=== PATIENT | female | born 1995 | race Caucasian/White ===

== ENCOUNTER 2018-05-09 11:31 | Emergency (ER) | payer OTHER ==
[2018-05-09 11:37] VITALS: BP 114/85
--- NOTE | 2018-05-09 11:55 | EDPHY ---
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 Tetanus is out-of-date. Describes decreased sensation to the distal portion. PHYSICAL EXAM (Prior to examination, patient consented to physical exam, hands were washed and my usual and customary physical exam procedures followed) 1) GENERAL: Well-developed, well-nourished, alert and oriented. Appears to be in no acute distress. 2) HEAD: Normocephalic 3) HEENT: sclera anicteric 4) LUNGS: Breathing comfortably. 5) SKIN: Laceration measuring 1.5 cm 6) MUSCULOSKELETAL: Left pinky finger distal aspect of the distal phalanx approximately 30% amputation with viable flap tissue distally. No osseous fragments visualized. 7) NEUROLOGIC: Decreased sensation to the distal aspect Smoking Status: Never smoked Constitutional: Initial Vital Signs Temperature (C) 36.8 C 05/09/18 11:34 Heart Rate 82 05/09/18 11:34 Respiratory Rate 18 05/09/18 11:34 Blood Pressure 114/85 H 05/09/18 11:34 O2 Sat (%) 95 05/09/18 11:34 O2 Delivery Mode Room Air Allergies/Adverse Reactions: No Known Allergies Allergy (Unverified 05/09/18 11:37) Home Medications: Medication Instructions Recorded Albuterol Sulfate 05/09/18 Cephalexin [Keflex] 500 mg PO TID 5 Days cap 05/09/18 MDM/Departure - MDM Imaging: I viewed and interpreted images myself Procedures: Procedure: Laceration repair. I explained the indications, risks and benefits for both laceration repair and anesthetic administration. Verbal consent was obtained from the patient. The laceration on the left 5th digit was anesthetized using 0.5% bupivicaine without epinephrine digital nerve block. After anesthetic administered the patient was observed for a period of time and had no apparent adverse effects. The wound was cleaned, prepped, draped in normal sterile fashion and explored to its base. No foreign body seen, no foreign bodies palpated. There were no deep structures involved. No tendon injury was identified. The wound was repaired with 4 simple interrupted 5 O Ethilon sutures. The wound repair was simple. The procedure was performed by myself. Patient has been informed that scarring will occur, although efforts have been made to minimize this. Medications Given: Discontinued Medications Diphtheria/Tetanus/Acell Pertussis (Boostrix) 0.5 ml IM .ONCE ONE Stop: 05/09/18 12:04 Last Admin: 05/09/18 12:11 Dose: 0.5 ml ED Course/Re-evaluation: Wound primarily closed in the ER. Patient has been informed that due to the flap nature of the wound the long-term viability of tissue is incompletely clear at this time. Recommend follow up with Hand surgery and work comp provider. Started on prophylactic antibiotics. She verbalized understanding of instructions. Patient feels comfortable being discharged. All questions and concerns addressed by myself. Patient given my usual and customary discharge precautions and instructions regarding their clinical impression. Care of patient under supervision of secondary supervising physician Dr Devan Glover. - Depart Disposition: Home, Routine, Self-Care Clinical Impression: Finger laceration Qualifiers: Encounter type: initial encounter Finger: little finger Damage to nail status: without damage Foreign body presence: without foreign body Laterality: left Qualified Code(s): S61.217A - Laceration without foreign body of left little finger without damage to nail, initial encounter Condition: Good Instructions: Laceration (ED), Care For Your Stitches (ED) Additional Instructions: Return to the ER if you develop redness, swelling, discharge, warmth to the wound, red streaks going up your arm, or any other symptoms that concern you. Stand Alone Forms: Work Comp Follow Up Prescriptions: Cephalexin [Keflex] 500 mg PO TID 5 Days cap Referrals: Melecio Singh MD [Medical Doctor] - 2-3 days, call for appt.
[2018-05-09] MEDS ORDERED: TDAP ADULT 0.5 ML INJ (BOOSTRIX) IM ONE (12:03)
== END 2018-05-09 12:55 | disposition home or self-care (01) ==
PROC: 0HQGXZZ Repair Left Hand Skin, External Approach (ICD-10-PCS; principal; 2018-05-09)
DX: S61.217A Laceration without foreign body of left little finger without damage to nail, initial encounter (principal); Z23 Encounter for immunization; W26.9XXA Contact with unspecified sharp object(s), initial encounter; Y99.0 Civilian activity done for income or pay; Y93.G1 Activity, food preparation and clean up; Y92.9 Unspecified place or not applicable